=== PATIENT | male | born 1985 | race African-American/Black ===

== ENCOUNTER 2019-08-27 02:13 | Emergency (ER) | payer MEDICAID ==
[~2019-08-27] VITALS: Ht 182.9 cm; Wt 119.5 kg
[~2019-08-27 02:13] MED LIST: ALBU0.63 NEB; ALBUTEROL INHALER INH; FLUT1DIS5 IH; PRED20TA PO
[2019-08-27] MEDS ORDERED: KETOROLAC 30 MG/1 ML IM ONE (02:30)
[2019-08-27] MEDS ORDERED: ACETAMINOPHEN 500 MG TABLET PO ONE (02:30)
[2019-08-27] MEDS ORDERED: DIAZEPAM 5 MG TABLET PO ONE (02:30)
[2019-08-27] MEDS ORDERED: ACETAMINOPHEN 500 MG TABLET ONE (02:30)
[2019-08-27] MEDS ORDERED: LIDODERM 5% PATCH TD ONE ×2 (02:30→02:32)
[2019-08-27] MEDS ORDERED: DIAZEPAM 5 MG/ML, 2ML ONE (02:30)
[2019-08-27] MEDS ORDERED: KETOROLAC 30 MG/1 ML ONE (02:32)
--- NOTE | 2019-08-27 02:48 | NUR ---
Meds discussed with ERP. Orders changed from Valium PO and Toradol IM to both IV. Pt medicated per MAY. Call light in reach.
--- NOTE | 2019-08-27 02:56 | NUR ---
Pt repositioned for comfort. Continues with sig pain. Call light in reach.
[2019-08-27] MEDS ORDERED: KETOROLAC 30 MG/1 ML IVPush ONE (03:00)
[2019-08-27] MEDS ORDERED: DIAZEPAM 5 MG/ML, 2ML IV ONE (03:00)
--- NOTE | 2019-08-27 03:15 | NUR ---
Pt sleeping with resp even and unlabored. Upon awakening, pt began moaning and stating his back hurts still. Discussed that we will let him rest a little more to allow meds to kick in. VSS. Call light in reach.
--- NOTE | 2019-08-27 03:45 | NUR ---
Pt found sleeping again. No s/s of acute distress. Upon waking, pt begins moaning and kicking feet back and forth. Pt refusing to attempt to sit up. States he is not feeling any better. Discussed with ERP and no more meds are to be given at this time. Pt is to attempt to walk. Pt becoming increasingly agitated. Security called for stand by. IV d/c'd. Discussed with pt that no more meds to be given. Pt very angry. Sits up by self. Pt able to walk with steady gait. Continues to moan and grunt. Pt cursing at ERP while walking by. Security escorted pt to d/c.
[2019-08-27 04:10] VITALS: BP 116/66
== END 2019-08-27 04:13 | disposition home or self-care (01) ==
LOC: ED 02:28
DX: S39.012A Strain of muscle, fascia and tendon of lower back, initial encounter (principal); R05 Cough; J45.909 Unspecified asthma, uncomplicated; F17.210 Nicotine dependence, cigarettes, uncomplicated; X58.XXXA Exposure to other specified factors, initial encounter; Y93.89 Activity, other specified; Y92.89 Other specified places as the place of occurrence of the external cause; Y99.8 Other external cause status
CPT/HCPCS: 96374; 96375; 99284; 99406; J1885; J3360